=== PATIENT | female | born 1955 | race Caucasian/White ===

== ENCOUNTER → 2016-09-25 | Outpatient (CLI) | payer OTHER ==
[~2016-09-25] VITALS: Ht 175.3 cm; Wt 154.6 kg
[~2016-09-25] MED LIST: AMBEREN PO; AMLODIPINE BESYL5 MG PO; BENAZEPRIL HCL40 MG PO; COLACE100 MG PO; ENDOCET 5-3251 EACH PO; ENOXAPARIN40 MG/0.1 SUBQ; ESTRACE0.5 MG PO; LEXAPRO20 MG PO; LIPITOR20 MG PO; METFORMIN HCL500 M2 PO; NEURONTIN 300300 M1 PO; NEURONTIN600 MG PO; OXYCODONE-ACET1 EACH PO; PHENTERMINE H37.5 MG PO; PROVERA2.5 MG PO
--- NOTE | ~2016-09-25 | HPC ---
[facility] [place] [address] PAIN MANAGEMENT CONSULTATION Name: ASH MACARIO Room #: REG Terry Manriquez.#: [id number] Admission: 09/25/16 Attend Phys: Alex Brasher MD Discharge: Date of : 55 Report #: [id number] THIS REPORT FOR: //name// CC: Yakov Brasher DATE OF SERVICE: 09/25/2016 Followup visit for chronic low back pain. The patient returns to pain clinic today for renewal of her medications. She was last seen on 05/04/2016. At that time, I provided her with gabapentin and oxycodone. She has a total of 2 oxycodone tablets a day and I provided her with 3 months at a time. She uses them sparingly, breaks them in half ____ she can get by without. She continues to work 2 days a week and finds that the medication is very helpful and allow her to remain active. She has no significant side effects. Pain today is described as 2, exacerbated by walking and standing and alleviated by rest and medication. PHYSICAL EXAMINATION: GENERAL: The patient is pleasant, alert and oriented, moves easily from standing position, shows no signs of depression or anxiety. VITAL SIGNS: Blood pressure 129/91, heart rate 94. BMI is 50.3. She has pain across her low back. She denies all side effects. IMPRESSION: 1. Chronic intractable back pain with spondylosis. 2. Management of high risk medications under terms of our opioid agreement. 3. Morbid obesity. PLAN: We have renewed medications under terms of the agreement. The importance of safeguarding all medications was discussed. We will plan to see her in followup closely, the CDC guidelines as we continue to provide her with medication going forward. By: [id number] Alex Brasher MD /nt
[2016-09-25 14:40] VITALS: BP 129/91
== END ==
LOC: PAIN 07:56
DX: M47.819 Spondylosis without myelopathy or radiculopathy, site unspecified (principal); G89.29 Other chronic pain; E66.01 Morbid (severe) obesity due to excess calories; Z68.43 Body mass index [BMI] 50.0-59.9, adult

== ENCOUNTER → 2017-01-18 | Outpatient (CLI) | payer OTHER ==
[~2017-01-18] VITALS: Ht 175.3 cm; Wt 157.1 kg
--- NOTE | ~2017-01-18 | HPC ---
[facility] [place] [address] [place] [address] PAIN MANAGEMENT CONSULTATION Name: ASH MACARIO Room #: REG [facility].#: [id number] Admission: 01/18/17 Attend Phys: Alex Brasher MD Discharge: Date of : 55 Report #: [id number] THIS REPORT FOR: //name// CC: AI Brasher DATE OF SERVICE: 01/18/2017 Followup visit for chronic low back pain and management of high risk medication. The patient is here today in the pain clinic for her 3 months routine followup for medication. She uses a very low dose oxycodone 5 mg/325 twice daily in addition to gabapentin 300 mg 3 times daily. She has been on this medication now under terms of an opioid agreement, which we established first on 05/05/2004. She has been on this agreement, which has been re-signed on a couple of occasions, therefore for about 13 years. Her medication dose has been higher in the past. 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 She denies any significant side effects. Her pain score is 3; worse with standing, walking and activity. Pain is related to osteoarthritis primarily, she also has degenerative spondylosis of the lumbar spine. She had a right knee replacement in 2005. PHYSICAL EXAMINATION: She is a delightful 61-year-old pleasant, alert and oriented, without signs of overmedication, depression or anxiety. Blood pressure 138/77, BMI is 51. She has some pain across her low back, walks with a slightly antalgic gait. IMPRESSION: 1. Chronic intractable back pain with spondylosis. 2. Osteoarthritis. 3. Morbid obesity. 4. Management of high risk medications under terms of written opioid agreement. PLAN: We reviewed her medication dose. We discussed the CDC guidelines. We discussed the current dose, which is an MME of 15 per day. This is a very modest. Importance of safeguarding all medications was discussed. Followup visit is planned in 3 months. By: [id number] 02 Alex Brasher MD /nt
[2017-01-18 10:47] VITALS: BP 138/77
== END | disposition home or self-care (01) ==
LOC: PAIN 07:27
DX: M19.90 Unspecified osteoarthritis, unspecified site (principal); E66.01 Morbid (severe) obesity due to excess calories; G89.29 Other chronic pain; M47.9 Spondylosis, unspecified; Z68.43 Body mass index [BMI] 50.0-59.9, adult

== ENCOUNTER → 2017-06-25 | Outpatient (CLI) | payer OTHER ==
[~2017-06-25] VITALS: Ht 175.3 cm; Wt 154.2 kg
[~2017-06-25] MED LIST changes: +AMLODIPINE BESY10 MG PO; -AMLODIPINE BESYL5 MG PO
--- NOTE | ~2017-06-25 | HPC ---
[facility] [place] [address] PAIN MANAGEMENT CONSULTATION Name: ASH MACARIO Room #: REG [facility].#: [id number] Admission: 06/25/17 Attend Phys: Alex Brasher MD Discharge: Date of : 55 Report #: [id number] THIS REPORT FOR: //name// CC: Yakov Brasher DATE OF SERVICE: 06/25/2017 Followup visit for management of high-risk medication and treatment of chronic low back pain. The patient is doing well. She continues to work part-time. She does two 12-hour shifts a week, which is just about perfect for her. She is now 62 years of age. She hopes to continue working several more years and is grateful for medication which provides her the relief and that ability to do so. She denies any side effects from medication and functional levels are improved. She has consistently safeguarded her medication. I have not done a urine drug screen or a buccal drug screen on her for a number of years and I have elected to provide that testing today for her. She understands that this is part of the CDC guideline. PHYSICAL EXAMINATION: GENERAL: She is a delightful 62-year-old pleasant, alert and oriented, without signs of overmedication, depression or anxiety. VITAL SIGNS: Blood pressure 135/102, heart rate is 88. Her BMI is 50.2. She has lost a small amount of weight, but having challenges losing further. She understands this contributes to her back pain. IMPRESSION: 1. Chronic low back pain with spondylosis. 2. Osteoarthritis. 3. Morbid obesity. 4. Management of opioid medication under terms of written opioid agreement. PLAN: I renewed her low-dose oxycodone 5/325 at two tablets per day for a total MME of 15. A buccal drug screen was performed. I have encouraged her to try to develop a habitual walking program. I will see her back in the pain clinic in 3 months. <ELECTRONICALLY SIGNED> By: Alex Brasher MD 07/18/17 1640 [id number] Alex Brasher MD /nt
[2017-06-25 14:23] VITALS: BP 135/102
== END ==
LOC: PAIN 07:10
DX: M47.896 Other spondylosis, lumbar region (principal); M19.90 Unspecified osteoarthritis, unspecified site; E66.01 Morbid (severe) obesity due to excess calories; F11.90 Opioid use, unspecified, uncomplicated; Z79.899 Other long term (current) drug therapy

== ENCOUNTER → 2018-02-18 | Outpatient (CLI) | payer OTHER ==
[~2018-02-18] VITALS: Ht 175.3 cm; Wt 155.2 kg
--- NOTE | ~2018-02-18 | HPC ---
[facility] [address] [place] [address] PAIN MANAGEMENT CONSULTATION Name: ASH MACARIO Room #: REG HALINA Manriquez.#: [id number] Admission: 02/18/18 Attend Phys: Alex Brasher MD Discharge: Date of : 55 Report #: [id number] THIS REPORT FOR: //name// CC: Yakov Brasher DATE OF SERVICE: 02/18/2018 REASON FOR CONSULTATION: Followup visit for chronic low back pain and osteoarthritis, bilateral knees. HISTORY OF PRESENT ILLNESS: The patient returns to pain clinic today for renewal of medication. She is grateful for the pain relief that she gets, allowing her to continue to work two 12-hour shifts a day at the very busy [employer] unit. She has had no significant side effects from the medication. It works well and accomplishes what she needs. Her morphine milligram equivalency is 15. She denies side effects. She safeguards her medication carefully. PHYSICAL EXAMINATION: GENERAL: She is brenda 62-year-old pleasant, alert and oriented. MUSCULOSKELETAL: She has some tenderness about her spine, bilateral knees and shoulders. VITAL SIGNS: BMI is 50.5. Blood pressure 124/85, heart rate 85, respirations ____. With medication, pain intensity 1-2/10. IMPRESSION: 1. Chronic low back pain with spondylosis. 2. Osteoarthritis. 3. Management of high risk opioid medication. 4. Obesity. PLAN: Medications were renewed under terms of our opioid agreement. I have reviewed her buccal screen and her prescription drug monitoring program and all are in order. By: [id number] Alex Brasher MD /nt
[2018-02-18 14:25] VITALS: BP 124/85
== END ==
LOC: PAIN 07:39
DX: E66.9 Obesity, unspecified (principal); M47.896 Other spondylosis, lumbar region; M17.0 Bilateral primary osteoarthritis of knee; Z79.899 Other long term (current) drug therapy

== ENCOUNTER → 2018-06-06 | Outpatient (CLI) | payer OTHER ==
[~2018-06-06] VITALS: Ht 175.3 cm; Wt 152.9 kg
[2018-06-06 12:31] VITALS: BP 156/85
--- NOTE | 2018-06-06 12:32 | NUR ---
Pain Clinic Assessment: 1. History of Osteoarthritis: hips spine nael knees nael shoulders History of Rheumatoid Arthritis: Not Applicable 2. Height: 5 ft. 9 in. 175.3 cm. Weight: 337.0 lb. oz. 152.863 kg. Patient's BMI: 49.7 3. Vital Signs: BP: 156/85 Pulse: 71 Resp: 18 Temp: 02 Sat: 96 ECG Mon: 4. Pain Intensity: 3 5. Fall Risk: Dizziness: N Needs help standing or walking: N Fallen in the last 3 months: Y Fall risk comments: FELL ON GARAGE STEPS 05/17/18 BUT NO INJURY SUSTAINED 6. Patient on Blood Thinner: None 7. History of Hypertension: Y 8. Opioid Therapy greater than 6 weeks: Y Opiate Contract Signed: 01/05/16 9. Risk Assessment Tool Provided: 1- LOW RISK 10. Functional Assessment Tool: 11. Recreational Drug Use: Never Drug Type: Tobacco Use: Never Smoker Tobacco Type: Amount or Packs/day: How Many Years: Alcohol Use: No Frequency: Quant:
--- NOTE | 2018-06-06 16:17 | HPC ---
[facility] [address] [place] [address] PAIN MANAGEMENT CONSULTATION Name: ASH MACARIO [id number] Admission: 06/06/18 Attend Phys: Georgina Green Discharge: Date of : 55 Report #: [id number] THIS REPORT FOR: //name// CC: Georgina Green Yakov Weathers DATE OF SERVICE: 06/06/2018 CHIEF COMPLAINT: Chronic low back pain and osteoarthritis, bilateral knees. HISTORY OF PRESENT ILLNESS: The patient returns to the pain clinic today for refill of her medications. 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 She tells me that her pain score today is a 3, which is an average pain score for her. Her pain is worse when she is walking, standing activity, but better with medications and resting. It is mostly located in her low back and both knees. She feels that her arthritis has gotten worse, but she tells me that the medications have helped her tremendously and she is able to get by. She does have some issues with constipation occasionally, but because she is on a low dose of medications, she is able to control this with her diet. She does not have any problems with daytime sleepiness. She would like a refill of her oxycodone and gabapentin today. ALLERGIES: PENICILLIN. CURRENT LIST OF MEDICATIONS: Oxycodone 5/325 b.i.d., gabapentin 300 mg 3 times a day, Lexapro 30 mg daily, amlodipine 10 mg daily, multivitamin, Lipitor 20 mg at bedtime, and Lotensin 40 mg daily. PQRS: 1. She has a history of osteoarthritis in her hips, spine, knees and shoulders. Denies rheumatoid arthritis. 2. Height is 5 feet 9 inches, weight is 337, BMI is 49. 3. Vital Signs: Blood pressure 156/85, pulse is 71, respirations 18, oxygen sat is 96%. 4. Pain score is 3. 5. Fall risk. She denies dizziness. Does not need help walking or standing. She did fall in the garage in 04/2018, but she has no injuries from that. 6. Not on any blood thinners and does take antihypertensive medicines. 7. Her opiate therapy is greater than 6 weeks, therefore an opioid signed contract is on the chart. 8. Her risk assessment tool is low. Her functional assessment is 21/70. 9. Recreational drug use, she denies. She is not a smoker and does not drink alcohol. We discussed the prescription monitoring system[place] [address] PAIN MANAGEMENT CONSULTATION Name: ASH MACARIO Room #: REG CLTerry Xiong#: [id number] Admission: 06/06/18 Attend Phys: Georgina Green Discharge: Date of : 55 Report #: [id number] appropriately her medications from Dr. Brasher. There seems to be no aberrant behavior noted. We will check a urine drug screen on the next visit on this patient. The patient tells me she does safeguard her medications. PHYSICAL EXAMINATION: GENERAL: This is a 63-year-old is a well-developed, well-nourished, obese female that appears her stated age. Her affect is appropriate. HEENT: Normocephalic, atraumatic. Extraocular eye muscles are intact. Mucous membranes are moist. Hearing is adequate. NECK: No JVD or adenopathy. Adequate range of motion. MUSCULOSKELETAL: She does have some tenderness in her spine and knees. She does walk with an antalgic gait. Her lower extremity muscle strength judged to be 5/5 for all major muscle groups. IMPRESSION: 1. Chronic low back pain with spondylosis. 2. Osteoarthritis. 3. Management of high risk opioid medication. 4. Obesity. We reviewed the fact that opiate medications are being used to provide analgesia adequate to support activities of daily living, not attempting to achieve a specific pain score on the 0-10 Visual Analog Scale. The current opiate medications are providing sufficient analgesia to allow the patient to participate in activities of daily living. The patient is not exhibiting any aberrant behavior suggestive of drug diversion. The patient is not having any adverse reactions to medications. The patient is not suffering from daytime somnolence or mental acuity changes. The patient is managing opiate-induced constipation with appropriate guxk-rfm-lpithml agents and dietary considerations. The patient was counseled on concern for caution with operating a motor vehicle while using opiate medications. A physical exam was performed and the patient's functional status was evaluated. All patients with back pain were advised against the bed rest greater than 4 days and were advised to return to normal activities. Pain score assessment was noted and the treatment plan was reviewed with the patient. All current medications, both prescribed and OTC were reviewed and reconciled on the electronic medical record. Tobacco screening was accomplished and smoking cessation was advised when indicated. BMI was noted and diet/exercise modification was recommended for all patients following outside normal parameters. I reviewed with the patient today their responsibilities to safeguard prescription medications, reviewed their responsibility to utilize medications only as prescribed by the physician. They are to seek and receive pain medications only from 1 physician group ([facility]). They are to use [address] [address] PAIN MANAGEMENT CONSULTATION Name: ASH MACARIO Room #: REG [facility]#: [id number] Admission: 06/06/18 Attend Phys: Georgina Green Discharge: Date of : 55 Report #: [id number] pharmacy and keep the clinic informed if they change pharmacies. Their responsibilities include making followup visits in a timely fashion and to avoid abrupt discontinuation of medication usage. Their responsibilities further include bringing their medications (bottles from the pharmacy with residual pills) to the visit for possible confirmation of pill counts and the patient understands it is their responsibility to submit to random drug screens to ensure both that the medications prescribed are present, and that no other controlled substances are present. All prescriptions provided today were generated electronically. PLAN: 1. We discussed treatment options today. I did explain to the patient about the CDC guidelines and the current MME. this patient is currently at 15 MME per day with her 2 oxycodone 5/325 pills a day, way below the CDC guidelines of 50 or lower. We will give her 3 months of her medication of oxycodone 5/325 #60 for today and for an 8-week release. Second medication will be gabapentin 300 mg t.i.d., #2 70, which is a 3-month supply. The patient will be seen in 3-month time. 2. She verbalizes understanding. The patient was seen in collaboration today with Dr. Alex Brasher. <ELECTRONICALLY SIGNED> By: Georgina Green 06/06/18 1617 [id number] [id number] Georgina ceron
== END ==
LOC: PAIN 07:15
DX: G89.29 Other chronic pain (principal); M19.90 Unspecified osteoarthritis, unspecified site; E66.9 Obesity, unspecified; M47.896 Other spondylosis, lumbar region; Z79.891 Long term (current) use of opiate analgesic

== ENCOUNTER → 2018-10-17 | Outpatient (CLI) | payer OTHER ==
[~2018-10-17] VITALS: Ht 175.3 cm; Wt 149.7 kg
[2018-10-17 10:08] VITALS: BP 126/80
--- NOTE | 2018-10-17 10:20 | NUR ---
Pain Clinic Assessment: 1. History of Osteoarthritis: hips spine nael knees nael shoulders History of Rheumatoid Arthritis: Not Applicable 2. Height: 5 ft. 9 in. 175.3 cm. Weight: 330.0 lb. oz. 149.688 kg. Patient's BMI: 48.7 3. Vital Signs: BP: 126/80 Pulse: 82 Resp: 16 Temp: 02 Sat: 96 ECG Mon: 4. Pain Intensity: 2 5. Fall Risk: Dizziness: N Needs help standing or walking: N Fallen in the last 3 months: N Fall risk comments: FELL ON GARAGE STEPS 05/17/18 BUT NO INJURY SUSTAINED 6. Patient on Blood Thinner: None 7. History of Hypertension: Y 8. Opioid Therapy greater than 6 weeks: Y Opiate Contract Signed: 01/05/16 9. Risk Assessment Tool Provided: LOW RISK 05/23 10. Functional Assessment Tool: 11. Recreational Drug Use: Never Drug Type: Tobacco Use: Never Smoker Tobacco Type: Amount or Packs/day: How Many Years: Alcohol Use: No Frequency: Quant:
--- NOTE | 2018-10-18 08:20 | HPC ---
[facility] [address] [place] [address] PAIN MANAGEMENT CONSULTATION Name: RENALDO,ASH KHAI Room #: REG [facility] Tyrese#: [id number] Admission: 10/17/18 ������������������ Attend Phys: Georgina Green Discharge: ������������������ Date of : 55 Report #: [id number] THIS REPORT FOR: //name// CC: Georgina Nagy Weathers DATE OF SERVICE: 10/17/2018 CHIEF COMPLAINT: Chronic low back pain and osteoarthritis in bilateral knees. HISTORY OF PRESENT ILLNESS: This is a pleasant 63-year-old female who returns to the pain clinic today for refill of her medications. She continues to take them 1-2 tablets a day very sparingly. 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 Her pain is mostly located in her lower back and hips and bilateral knees, though she has been having some ongoing shoulder issues. She has been seeing the chiropractor fairly frequently to help with her left trapezius muscle. The right has improved and she is still going on a fairly frequent basis for treatments for her left side. The patient rates her pain today at 2/10, again mostly when she is working and standing and medications and rest are helpful. She has no problems with constipation. Normally, she takes an extb-dtl-xezirst medication, though she does tell me that she was hospitalized with a small-bowel obstruction, though she does not believe it was related to constipation. She felt that she had some adhesions and scar tissue that caused her small-bowel obstruction. ALLERGIES: PENICILLIN. CURRENT MEDICATIONS: Gabapentin 300 mg 3 times a day, oxycodone 5/325, 1-2 tablets daily, Lexapro 20 mg daily, amlodipine 10 mg daily, multivitamin daily, atorvastatin 20 mg daily, Lotensin 40 mg daily. PQRS: 1. History of osteoarthritis in her hips, spines, knees and shoulders. Denies any rheumatoid arthritis. 2. Height is 5 feet 9 inches, weight is 330, BMI is 48. 3. VITAL SIGNS: 126/80, pulse is 82, respirations 16, oxygen sat is 96. 4. Pain score is 2/10. 5. Fall risk. Denies dizziness. Does not need help with walking or standing and has not fallen in the last 3 months. 6. The patient is not on any blood thinners. She does have a history of hypertension. 7. Opioid therapy is greater than 6 weeks; therefore, an opioid signed contract is on the chart. Her risk assessment tool is low and her functional assessment 25/70. [place] [address] PAIN MANAGEMENT CONSULTATION Name: RENALDO,ASHSotero RIDLEY Room #: STEPHANIE Xiong#: [id number] Admission: 10/17/18 ������������������ Attend Phys: Georgina Green Discharge: ������������������ Date of : 55 Report #: [id number] 8. Recreational drug use, she denies. She is not a smoker and does not drink alcohol. We did check the prescription monitoring system. The patient is filling appropriately for her medications. She tells me she does safeguard her medicines at all times. We will check a drug screen on her in the next visit. PHYSICAL EXAMINATION: GENERAL: This is a very pleasant 63-year-old that is well-developed, well-nourished, obese female that appears her stated age. Her affect is appropriate. Placing her pain score today at 2/10. HEENT: Normocephalic, atraumatic. Extraocular eye muscles are intact. Mucous membranes are moist. Hearing is adequate. NECK: Without JVD or adenopathy. MUSCULOSKELETAL: She has pain and tenderness in her bilateral knees and some tenderness across her lower back. She walks with a slightly antalgic gait. Her lower extremity strength judged to be 5/5 in all major muscle groups. IMPRESSION: 1. Chronic low back pain with spondylosis. 2. Osteoarthritis. 3. Obesity. 4. Management of high risk medications under terms of written opioid agreement. We reviewed the fact that opiate medications are being used to provide analgesia adequate to support activities of daily living, not attempting to achieve a specific pain score on the 0-10 Visual Analog Scale. The current opiate medications are providing sufficient analgesia to allow the patient to participate in activities of daily living. The patient is not exhibiting any aberrant behavior suggestive of drug diversion. The patient is not having any adverse reactions to medications. The patient is not suffering from daytime somnolence or mental acuity changes. The patient is managing opiate-induced constipation with appropriate nwrg-mcm-rlabmpa agents and dietary considerations. The patient was counseled on concern for caution with operating a motor vehicle while using opiate medications. A physical exam was performed and the patient's functional status was evaluated. All patients with back pain were advised against the bed rest greater than 4 days and were advised to return to normal activities. Pain score assessment was noted and the treatment plan was reviewed with the patient. All current medications, both prescribed and OTC were reviewed and reconciled on the electronic medical record. Tobacco screening was accomplished and smoking cessation was advised when indicated. BMI was noted and diet/exercise modification was recommended for all patients following outside normal parameters. [address] [address] PAIN MANAGEMENT CONSULTATION Name: ASH MACARIO Room #: REG [facility]#: [id number] Admission: 10/17/18 ������������������ Attend Phys: Georgina [employer] WORK[employer] Norma Discharge: ������������������ Date of : 55 Report #: [id number] I reviewed with the patient today their responsibilities to safeguard prescription medications, reviewed their responsibility to utilize medications only as prescribed by the physician. They are to seek and receive pain medications only from 1 physician group ( [facility]). They are to use 1 pharmacy and keep the clinic informed if they change pharmacies. Their responsibilities include making followup visits in a timely fashion and to avoid abrupt discontinuation of medication usage. Their responsibilities further include bringing their medications (bottles from the pharmacy with residual pills) to the visit for possible confirmation of pill counts and the patient understands it is their responsibility to submit to random drug screens to ensure both that the medications prescribed are present, and that no other controlled substances are present. All prescriptions provided today were generated electronically. PLAN: 1. We discussed treatment options with the patient today. The patient tells me she is doing quite well on her current medication regimen, taking 1-2 tablets a day. This places her current morphine mEq at 15 well below the CDC guidelines. We will refill her medicines today. 2. Oxycodone 5/325 b.i.d., #60 for today, 4 and 8-week release. Last time this lasted the patient greater than 4 months with these 3 months of medications. 3. Gabapentin 300 mg t.i.d. #270, with two additional refills. This is a 3-month supply with refills. 4. Dr. Alex Brasher did come and talk to the patient as well as collaborated care today. We did discuss constipation in lieu of her small-bowel obstruction. The patient again reemphasized that she did not believe it had to do with the opioids; it was other things that caused her bowel obstruction. She was encouraged to drink plenty of liquids and use over the counter bowel products. 5. The patient will return in followup as needed. Care given with Dr Brasher who did see the pateint and collaborate care today. ��������������������������������������������� <ELECTRONICALLY SIGNED> ���������������������������������������� By: Georgina Green ��������������������������������������������� 10/18/18 0820 [id number] Georgina Green /nt
== END ==
LOC: PAIN 06:45
DX: M54.5 Low back pain (principal); M17.0 Bilateral primary osteoarthritis of knee; M47.819 Spondylosis without myelopathy or radiculopathy, site unspecified; I10 Essential (primary) hypertension; E66.9 Obesity, unspecified; Z68.42 Body mass index [BMI] 45.0-49.9, adult; Z79.891 Long term (current) use of opiate analgesic; Z79.899 Other long term (current) drug therapy; Z88.0 Allergy status to penicillin

== ENCOUNTER → 2019-01-13 | Outpatient (CLI) | payer OTHER ==
[~2019-01-13] VITALS: Ht 175.3 cm; Wt 148.2 kg
--- NOTE | ~2019-01-13 | HPC ---
[facility] [place] [address] [address] PAIN MANAGEMENT CONSULTATION Name: ASH MACARIO Room #: REG HALINA Mitra.#: [id number] Admission: 01/13/19 Attend Phys: Alex Brasher MD Discharge: Date of : 55 Report #: [id number] THIS REPORT FOR: //name// CC: Yakov Brasher DATE OF SERVICE: 01/13/2019 CHIEF COMPLAINT: 1. Chronic low back pain, osteoarthritis, bilateral knees. 2. Status post right total knee replacement. The patient is here in followup. We see her at 3-month intervals. She is on low dose oxycodone/APAP. She has found this medication to provide substantial relief of daily arthropathy pain and chronic low back pain. She denies any significant side effects whatsoever. She is able to be much more active with medication and is able to continue working with medication. She is grateful for the ability to continue working and does not think that she can continue without medication. She has been on signed opioid agreement dating back over 10 years. Her dose of opioid medication is actually lessened as she has continued to strive for the lowest effective dose. At one time, she was on OxyContin with a breakthrough of hydrocodone. She has settled into the dose of oxycodone 5/325 mg over the last several years with no escalation. We have confirmed her use through the [facility] prescription drug monitoring program and there have been no unexpected entries. As has agreed to and our written opioid agreement and occasional random drug testing has shown no suspected entries. All of this is important as she is moving to [facility] to be closer to family. She will be moving in with her son, [id number] and 3 grandchildren. She may return to work in the [facility] area. She is concerned given the current climate about opioids that she will be able to find a physician on the [facility]. We will provide her with the small amount of medication. I will say at this point that there has been no aberrant behavior unusual activity. She has been an excellent patient. MEDICATIONS: Include gabapentin 300 mg t.i.d. for chronic neuropathic pain and radiculopathy, oxycodone 5/325 one to two tablets daily, 60 tablets per month, Lexapro 20 mg daily, amlodipine 10 mg daily, multivitamin daily, atorvastatin, 20 mg daily, Lotensin 40 mg daily. ALLERGIES: PENICILLIN. PAST MEDICAL HISTORY: Positive for osteoarthritis involving multiple joints, [facility] [address] [place] [address] PAIN MANAGEMENT CONSULTATION Name: ASH MACARIO Room #: REG [facility]#: [id number] Admission: 01/13/19 Attend Phys: Alex Brasher MD Discharge: Date of : 55 Report #: [id number] obesity. Right knee replacement in 2005. Modified Steve shunt procedure performed in 1978. She still has some gastric sensitivity. Laparoscopic cholecystectomy in 2004. SOCIAL HISTORY: She denies tobacco. She denies use of alcohol. There is no use of marijuana for medicinal or recreational purposes. She works as a registered nurse. PHYSICAL EXAMINATION: GENERAL: The patient is a pleasant 63-year-old female, alert and oriented with no signs of depression, anxiety or overmedication. VITAL SIGNS: She is 5 feet and 9 inches, 326 pounds, BMI is 48.2. Blood pressure 117/83, heart rate 86, respirations 16. HEENT: Within normal limits. Pupils are equal, round, reactive to light. EOMs are intact. Mucous membranes are moist. NECK: Supple. CHEST: Clear to auscultation. CARDIAC: Rhythm is regular. There is no audible murmur. ABDOMEN: Soft. There is no organomegaly. MUSCULOSKELETAL: Examination of the spine reveals diffuse tenderness across the lumbosacral segment. EXTREMITIES: Examination of the extremities reveals good range of motion. There is scar from previous right knee replacement. She has tenderness in multiple joints including hips and knees. Good range of motion, however, is noted. IMPRESSION: 1. Chronic pain related to osteoarthritis. Pain in her hips, spine, knees, shoulders. 2. Morbid obesity. 3. Management of high risk medications under an opioid agreement. Her morphine milligram equivalency is 15 MME. There have been no problems with her use of medication over a decade. PLAN: I renewed her medications as we have with monthly release at 4 and 8 weeks. I will be happy to discuss her care with a primary care physician or pain physician in the [facility] area at her request. We will forward all of her medical records. By: [id number] Alex Brasher MD /nt
[2019-01-13 09:14] VITALS: BP 117/83
--- NOTE | 2019-01-13 09:20 | NUR ---
Pain Clinic Assessment: 1. History of Osteoarthritis: hips spine nael knees nael shoulders History of Rheumatoid Arthritis: Not Applicable 2. Height: 5 ft. 9 in. 175.3 cm. Weight: 326.8 lb. oz. 148.236 kg. Patient's BMI: 48.2 3. Vital Signs: BP: 117/83 Pulse: 86 Resp: 16 Temp: 02 Sat: 97 ECG Mon: 4. Pain Intensity: 3 5. Fall Risk: Dizziness: N Needs help standing or walking: N Fallen in the last 3 months: N Fall risk comments: FELL ON GARAGE STEPS 05/17/18 BUT NO INJURY SUSTAINED 6. Patient on Blood Thinner: None 7. History of Hypertension: Y 8. Opioid Therapy greater than 6 weeks: Y Opiate Contract Signed: 01/05/16 9. Risk Assessment Tool Provided: LOW RISK 05/23 10. Functional Assessment Tool: 11. Recreational Drug Use: Never Drug Type: Tobacco Use: Never Smoker Tobacco Type: Amount or Packs/day: How Many Years: Alcohol Use: No Frequency: Quant:
== END ==
LOC: PAIN 06:51
DX: M17.0 Bilateral primary osteoarthritis of knee (principal); G89.29 Other chronic pain; E66.01 Morbid (severe) obesity due to excess calories; Z96.651 Presence of right artificial knee joint; Z88.0 Allergy status to penicillin; Z79.899 Other long term (current) drug therapy; Z79.891 Long term (current) use of opiate analgesic